=== PATIENT | female | born 1960 | race Caucasian/White ===

== ENCOUNTER 2021-07-31 15:34 | Outpatient (CLI) | payer OTHER ==
[~2021-07-31 15:34] MED LIST: ACET-1008 PO; ASCO250T22 PO; ASPI-100 PO; DILT30TA2 PO; FURO20TA4 PO; MELA3TAB70 PO; METO-384 PO; MULT-1249 PO; UBID10CA4 PO
== END 2021-07-31 23:59 | disposition home or self-care (01) ==
LOC: VAS 15:34
PROVIDERS: ATTEND Orthopaedic Surgery
DX: M79.605 Pain in left leg (principal)
CPT/HCPCS: 93971